=== PATIENT | female | born 1965 | race Caucasian/White ===

== ENCOUNTER 2016-08-20 13:39 | Emergency (ER) | payer OTHER ==
--- NOTE | 2016-08-20 14:02 | ED Physician Documentation ---
History of Present Illness - Stated complaint Stated Complaint: R SIDE PX - Chief complaint Chief Complaint: Abd Pain - History obtained from History obtained from: Patient, Family - History of Present Illness Timing: How many hours ago (4) Pain level max: 8 Pain level now: 5 Quality: aching, dull pain Improved by: took motrin 400mg 2 hrs ago and helped Worsened by: nothing - Additonal information Additional information: Patient with R flank pain x 4 hrs. Has had kidney stones in the past x2. Last was approx 3 years ago. Feels similar per pt. No nausea, no vomiting, no fever, no abd pain. no trauma. Review of Systems Ten Systems: 10 systems reviewed and negative Constitutional: denies: Fever, Chills Nose: denies: Rhinorrhea / runny nose, Congestion Throat: denies: Sore throat Cardiac: denies: Chest pain / pressure Respiratory: denies: Cough GI: denies: Nausea, Vomiting, Constipation, Diarrhea, Hematemesis, Bloody / black stool : denies: Dysuria, Frequency, Hesitancy Skin: denies: Rash Musculoskeletal: denies: Neck pain Neurologic: denies: Focal weakness, Numbness, Headache PD PAST MEDICAL HISTORY - Past Medical History Past Medical History: Yes : Kidney stones Psych: Depression - Past Surgical History Past Surgical History: No - Present Medications Home Medications: Ambulatory Orders Medication Instructions Recorded Confirmed Citalopram [CeleXA] 40 mg PO DAILY 07/29/12 08/20/16 Cyclobenzaprine [Flexeril] 10 mg TID 07/29/12 08/20/16 Oxycodone HCl/Acetaminophen 1 - 2 each PO Q6H PRN #20 tablet 08/20/16 [Percocet 5-325 mg Tablet] Purple Antidepressant 08/20/16 - Allergies Allergies/Adverse Reactions: Allergies Allergy/AdvReac Type Severity Reaction Status Date / Time No Known Drug Allergies Allergy Verified 07/29/12 18:57 - Social History Does the pt smoke?: No Smoking Status: Never smoker Does the pt drink ETOH?: No PD ED PE NORMAL - Vitals Vital signs reviewed: Yes - General General: Alert and oriented X 3, No acute distress - HEENT HEENT: Moist mucous membranes - Neck Neck: Supple, no meningeal sign - Cardiac Cardiac: RRR - Respiratory Respiratory: No respiratory distress, Clear bilaterally - Abdomen Abdomen: Soft, Non tender, Non distended - Back Back: No CVA TTP, No spinal TTP - Derm Derm: Warm and dry, No rash - Neuro Neuro: Alert and oriented X 3 - Psych Psych: Normal mood, Normal affect Results - Vitals Vitals: Vital Signs - 24 hr 08/20/16 08/20/16 13:47 15:30 Temperature 36.5 C Heart Rate 75 66 Respiratory 18 18 Rate Blood Pressure 169/88 H 141/61 H O2 Saturation 94 96 Oxygen O2 Source Room air - Labs Labs: Laboratory Tests 08/20/16 08/20/16 08/20/16 13:55 14:03 14:03 WBC 8.8 RBC 4.89 Hgb 13.2 Hct 39.7 MCV 81.2 MCH 27.1 MCHC 33.3 RDW 13.4 Plt Count 318 MPV 8.0 Neut # 5.5 Lymph # 2.2 Lyman # 0.8 Eos # 0.2 Baso # 0.1 Absolute Nucleated RBC 0.00 Nucleated RBCs 0.0 Sodium 141 Potassium 3.9 Chloride 109 Carbon Dioxide 25 Anion Gap 7.0 BUN 12 Creatinine 0.9 Estimated GFR (MDRD) 66 L Glucose 112 H Calcium 9.6 Total Bilirubin 0.6 AST 28 ALT 27 Alkaline Phosphatase 68 Total Protein 7.8 Albumin 4.2 Globulin 3.6 Albumin/Globulin Ratio 1.2 Lipase 34 Urine Color YELLOW Urine Clarity CLEAR Urine pH 5.5 Ur Specific [place] >=1.030 H Urine Protein TRACE Urine Glucose (UA) NEGATIVE Urine Ketones NEGATIVE Urine Occult Blood LARGE H Urine Nitrite NEGATIVE Urine Bilirubin NEGATIVE Urine Urobilinogen 0.2 (NORMAL) Ur Leukocyte Esterase NEGATIVE Urine RBC TNTC H Urine WBC 0-3 Ur Squamous Epith Cells MOD Squamous H Urine Bacteria None Seen Ur Microscopic Review INDICATED Urine Culture Comments NOT INDICATED - Rads (name of study) Ct abd/pelvis Radiology: Prelim report reviewed, EMP read contemporaneously, See rad report ( Severe right hydronephrosis secondary to a 9 mm distal ureteral stone. Nonobstructing punctate right and 9 mm left renal calculi. ) PD MEDICAL DECISION MAKING - ED course Complexity details: reviewed results, re-evaluated patient, considered differential, d/w patient ED course: Patient with a 9 mm right ureteral stone near the UVJ. She has hydronephrosis on that side. I offered to call a urologist for her, but they want to contact their insurance company to see who is in network for them. Recommend that she call the urologist as soon as possible to schedule an appointment as this may require retrieval of the stone. We also do not want to have her have an infected ureteral stone. She is well-appearing, nontoxic. Afebrile. Pain well controlled here. Tolerating p.o. without difficulty. She will return immediately if she worsens. Patient and family counseled regarding signs and symptoms for which I believe and urgent re-evaluation would be necessary. Patient with good understanding of and agreement to plan and is comfortable going home at this time This document was made in part using voice recognition software. While efforts are made to proofread this document, sound alike and grammatical errors may occur. Departure - Departure Disposition: 01 Home, Self Care Clinical Impression: Ureteral stone Condition: Good Instructions: ED Stone Renal W Colic Follow-Up: Isidro Harding DO [Primary Care Provider] - Within 1 week [facility] [Provider Group] Prescriptions: Oxycodone HCl/Acetaminophen [Percocet 5-325 mg Tablet] 1 - 2 each PO Q6H PRN # 20 tablet PRN Reason: pain Comments: Return if you worsen. Drink plenty of fluids. You need to see a urologist as this stone may not pass on its own. Your ureteral stone is approximately 9 mm. [facility] [address] [place] [address], [address] [place] [address] [address] alcohol or [address] while on narcotic pain medicine. Note that many narcotic pain relievers also contain tylenol/acetaminophen. Please ensure that your total dose of acetaminophen from all sources does not exceed 3 grams (3000mg) per day. You may constipated on this medication, take a stool softener such as "Colace" twice a day while you are on it. Also recommend a [id number] laxative such as senna or MiraLAX any day that you do not have a bowel movement. If you received narcotic pain medication in the emergency department, do not drive or operate machinery for the next 24 hours. Your blood pressure was elevated today on check in to the emergency department. This does not mean that you have hypertension, it is a common phenomenon to check into the emergency department and have elevated blood pressure. I recommend that you see your primary care physician within the week to have it rechecked when you're feeling better. Discharge Date/Time: 08/20/16 15:38
[2016-08-20 14:04] LABS: BILIRUBIN,URINE NEGATIVE (NEGATIVE); PH,URINE 5.5 PH (5.0-7.5)
[2016-08-20 14:10] LABS: BASOPHILS # (AUTO) 0.1 10^3/uL (0.0-0.1); BASOPHILS % (AUTO) 0.7 %; EOSINOPHILS # (AUTO) 0.2 10^3/uL (0.0-0.7); EOSINOPHILS % (AUTO) 2.6 %; HCT - HEMATOCRIT 39.7 % (37.0-47.0); HGB - HEMOGLOBIN 13.2 g/dL (12.0-16.0); LYMPHOCYTES # (AUTO) 2.2 10^3/uL (1.5-3.5); LYMPHOCYTES % (AUTO) 25.1 %; MEAN CORPUSCULAR HEMOGLOBIN 27.1 pg (27.0-31.0); MEAN CORPUSCULAR HGB CONC 33.3 g/dL (32.0-36.0); MEAN CORPUSCULAR VOLUME 81.2 fL (81.0-99.0); MONOCYTES # (AUTO) 0.8 10^3/uL (0.0-1.0); MONOCYTES % (AUTO) 8.7 %; NEUTROPHILS # (AUTO) 5.5 10^3/uL (1.5-6.6); NEUTROPHILS % (AUTO) 62.9 %; RED BLOOD COUNT 4.89 10^6/uL (4.20-5.40); RED CELL DISTRIBUTION WIDTH 13.4 % (12.0-15.0); UNCORRECTED WHITE BLOOD COUNT 8.8 x10^3/uL; WHITE BLOOD COUNT 8.8 x10^3/uL (4.8-10.8)
[2016-08-20 14:12] LABS: UA w/ MICROSCOPIC CHARGE YES
[2016-08-20 14:19] LABS: WBC,URINE 0-3 /HPF (0-5)
[2016-08-20 14:20] LABS: UR CULTURE IF IND NOT INDICATED
[2016-08-20 14:23] LABS: ALBUMIN/GLOBULIN RATIO 1.2 (1.0-2.2); BILIRUBIN,TOTAL 0.6 mg/dL (0.2-1.0); CALCIUM 9.6 mg/dL (8.5-10.3); CREATININE 0.9 mg/dL (0.4-1.0); POTASSIUM 3.9 mmol/L (3.5-5.0); TOTAL PROTEIN 7.8 g/dL (6.7-8.2)
[2016-08-20] MEDS ORDERED: HYDROmorphone 1 MG/ML SYRINGE IVP STA (14:51)
[2016-08-20] MEDS ORDERED: ONDANSETRON 4 MG/2 ML VIAL IVP STA (14:51)
[2016-08-20] MEDS ORDERED: KETOROLAC 60 MG/2 ML VIAL IVP STA (14:51)
[2016-08-20] MEDS ORDERED: KETOROLAC 30 MG/ML VIAL ONE (14:53)
[2016-08-20] MEDS ORDERED: HYDROmorphone 1 MG/ML SYRINGE ONE (14:53)
[2016-08-20] MEDS ORDERED: ONDANSETRON 4 MG/2 ML VIAL ONE (14:53)
--- NOTE | 2016-08-20 14:59 | CT Preliminary Report ---
Exam: CT Abdomen/Pelvis W/O IMPRESSION: 1. Severe right hydronephrosis secondary to a 9 mm distal ureteral stone. 2. Nonobstructing punctate right and 9 mm left renal calculi. [facility] SITE ID: [id number]
--- NOTE | 2016-08-20 15:02 | CT Report ---
EXAM: CT ABDOMEN AND PELVIS (CT KUB) EXAM DATE: 08/20/2016 02:33 PM. CLINICAL HISTORY: R flank pain, poss renal stone. COMPARISONS: 04/21/2008. TECHNIQUE: Routine axial helical CT imaging was performed through the abdomen and pelvis without IV c ontrast. Reconstructions: Coronal and sagittal. In accordance with CT protocol optimization, one or more of the following dose reduction techniques w ere utilized for this exam: automated exposure control, adjustment of mA and/or KV based on patient s ize, or use of iterative reconstructive technique. FINDINGS: Lung Bases: Unremarkable. Right Kidney/Ureter: There is severe hydroureteronephrosis secondary to a 9 mm stone in the distal ur eter approximately 2 cm proximal to the ureterovesical junction. Punctate nonobstructing stone is pre sent in the lower pole. Left Kidney/Ureter: No hydronephrosis. A 9 mm nonobstructing stone is present in the upper pole. Other Solid Organs: Noncontrast images of the solid organs are grossly unremarkable. Gallbladder/Bile Ducts: Unremarkable. Peritoneal Cavity: Bowel has normal caliber. There is diverticulosis of the descending and sigmoid co boaz without evidence of diverticulitis. No ascites or pneumoperitoneum. Pelvic Organs: Urinary bladder is decompressed. An intrauterine contraceptive device is present. Vasculature: Unremarkable. Other: None. IMPRESSION: 1. Severe right hydronephrosis secondary to a 9 mm distal ureteral stone. 2. Nonobstructing punctate right and 9 mm left renal calculi. [facility] Referring Provider Line: [phone] SITE ID: [id number]
[2016-08-20 15:31] VITALS: BP 141/61
== END 2016-08-20 15:38 | disposition home or self-care (01) ==
LOC: ED 13:39
DX: N13.2 Hydronephrosis with renal and ureteral calculous obstruction (principal); R03.0 Elevated blood-pressure reading, without diagnosis of hypertension
CPT/HCPCS: 36415; 74176; 80053; 81001; 81003; 83690; 85025; 87086; 96374; 96375; 99283; 99284

== ENCOUNTER 2016-08-26 13:12 | Outpatient (CLI) | payer OTHER | END 2016-08-26 13:13 | disposition critical access hospital (66) | LOC: EMS 13:12 | PROVIDERS: ATTEND Surgery | DX: R53.1 Weakness (principal); R55 Syncope and collapse | CPT/HCPCS: A0425; A0429 ==

== ENCOUNTER 2016-08-26 13:37 | Emergency (ER) | payer OTHER ==
[2016-08-26] MEDS ORDERED: SODIUM CHLORIDE 0.9% 1,000 ML IV ONE (13:50)
--- NOTE | 2016-08-26 13:54 | ED Physician Documentation ---
PD HPI ALTERED MENTAL STATUS - Stated complaint Stated Complaint: SYNCOPE - Chief complaint Chief Complaint: Neuro - History obtained from History obtained from: Family, EMS - History of Present Illness Timing - onset: Other (51-year-old woman with recent diagnosis of a large kidney stone taking occasional Percocet became acutely altered at lunch today. Most of the history is from the as she is unable to give a significant history because of her altered mental status. It sounds like she took one Percocet today, but that is not out of the ordinary. At lunch she started to complain of dizziness and feeling hot and then became clammy and lay down on the bench and is now basically nonverbal. Brought in by ambulance for altered mental status, blood sugar and route was in the 140s. denies significant concern for drug or alcohol abuse.) Review of Systems Unable to obtain: Confused PD PAST MEDICAL HISTORY - Past Medical History : Kidney stones Psych: Depression - Past Surgical History Past Surgical History: No - Present Medications Home Medications: Ambulatory Orders Medication Instructions Recorded Confirmed Citalopram [CeleXA] 40 mg PO DAILY 07/29/12 08/20/16 Cyclobenzaprine [Flexeril] 10 mg TID 07/29/12 08/20/16 Oxycodone HCl/Acetaminophen 1 - 2 each PO Q6H PRN #20 tablet 08/20/16 [Percocet 5-325 mg Tablet] Purple Antidepressant 08/20/16 - Allergies Allergies/Adverse Reactions: Allergies Allergy/AdvReac Type Severity Reaction Status Date / Time No Known Drug Allergies Allergy Verified 07/29/12 18:57 - Social History Does the pt smoke?: No Smoking Status: Never smoker Does the pt drink ETOH?: No PD ED PE NORMAL - Vitals Vital signs reviewed: Yes - General General: Other (Eyes closed, moaning, answers simple questions, alert and oriented 2, not the date. GCS 13) - HEENT HEENT: PERRL, Moist mucous membranes, Pharynx benign - Neck Neck: Supple, no meningeal sign, No bony TTP - Cardiac Cardiac: RRR, No murmur - Respiratory Respiratory: No respiratory distress, Clear bilaterally - Abdomen Abdomen: Soft, Non tender - Back Back: No CVA TTP, No spinal TTP - Derm Derm: Normal color, Warm and dry - Extremities Extremities: No edema, No calf tenderness / cord - Neuro Neuro: Other (Seems very weak peripherally, unable to lift either arm or leg off the bed for more than a couple of seconds, however her strength is symmetric and command following is symmetric. GCS is 13, -1 for eyes, -1 for verbal.) Results - Vitals Vitals: Vital Signs - 24 hr 08/26/16 13:40 Temperature 36.6 C Heart Rate 73 Respiratory 14 Rate Blood Pressure 133/70 H O2 Saturation 94 Oxygen O2 Source Room air - EKG (time done) 1346 Rate: Rate (enter#) (72) Rhythm: NSR [place]: Normal Intervals: Normal ME QRS: Normal Ischemia: Normal ST segments Computer interpretation: Agree with computer - Labs Labs: Laboratory Tests 08/26/16 08/26/16 08/26/16 13:46 13:46 14:05 WBC 10.0 RBC 4.89 Hgb 13.2 Hct 39.6 MCV 80.9 L MCH 27.0 MCHC 33.3 RDW 13.2 Plt Count 305 MPV 8.5 Neut # 7.3 H Lymph # 2.0 Mckenzie # 0.4 Eos # 0.2 Baso # 0.1 Absolute Nucleated RBC 0.00 Nucleated RBCs 0.0 Sodium 139 Potassium 3.7 Chloride 105 Carbon Dioxide 23 Anion Gap 11.0 BUN 12 Creatinine 0.9 Estimated GFR (MDRD) 66 L Glucose 142 H Calcium 9.4 Magnesium 1.9 Total Bilirubin 0.7 AST 33 ALT 24 Alkaline Phosphatase 64 Total Protein 7.9 Albumin 4.0 Globulin 3.9 Albumin/Globulin Ratio 1.0 Lipase 23 Urine Color Urine Clarity Urine pH Ur Specific [place] Urine Protein Urine Glucose (UA) Urine Ketones Urine Occult Blood Urine Nitrite Urine Bilirubin Urine Urobilinogen Ur Leukocyte Esterase Ur Microscopic Review Urine Culture Comments Urine HCG, Qual Salicylates < 6.0 Urine Opiates Screen NEGATIVE Ur Oxycodone Screen POSITIVE H Urine Methadone Screen NEGATIVE Ur Propoxyphene Screen NEGATIVE Acetaminophen < 10 L Ur Barbiturates Screen NEGATIVE Ur Tricyclics Screen NEGATIVE Ur Phencyclidine Scrn NEGATIVE Ur Amphetamine Screen NEGATIVE U Methamphetamines Scrn NEGATIVE U Benzodiazepines Scrn NEGATIVE Urine Cocaine Screen NEGATIVE U Cannabinoids Screen NEGATIVE Ethyl Alcohol < 5.0 08/26/16 14:05 WBC RBC Hgb Hct MCV MCH MCHC RDW Plt Count MPV Neut # Lymph # M[place]enzie # Eos # Baso # Absolute Nucleated RBC Nucleated RBCs Sodium Potassium Chloride Carbon Dioxide Anion Gap BUN Creatinine Estimated GFR (MDRD) Glucose Calcium Magnesium Total Bilirubin AST ALT Alkaline Phosphatase Total Protein Albumin Globulin Albumin/Globulin Ratio Lipase Urine Color YELLOW Urine Clarity CLEAR Urine pH 6.0 Ur Specific [place] 1.025 Urine Protein TRACE Urine Glucose (UA) NEGATIVE Urine Ketones NEGATIVE Urine Occult Blood SMALL H Urine Nitrite NEGATIVE Urine Bilirubin NEGATIVE Urine Urobilinogen 0.2 (NORMAL) Ur Leukocyte Esterase NEGATIVE Ur Microscopic Review INDICATED Urine Culture Comments Not Reportable Urine HCG, Qual NEGATIVE Salicylates Urine Opiates Screen Ur Oxycodone Screen Urine Methadone Screen Ur Propoxyphene Screen Acetaminophen Ur Barbiturates Screen Ur Tricyclics Screen Ur Phencyclidine Scrn Ur Amphetamine Screen U Methamphetamines Scrn U Benzodiazepines Scrn Urine Cocaine Screen U Cannabinoids Screen Ethyl Alcohol PD MEDICAL DECISION MAKING - ED course ED course: 51-year-old woman brought in by ambulance for acutely altered mental status, no clear drug or alcohol exposure. It was very sudden onset so infectious etiology is considered less likely. Unfortunately the CT scanner is down, I had a discussion with the , we offered either a stat transfer to [place] for CT versus waiting a few hours for MRI here and he opted for the latter, he does understand there is some risk to waiting for MRI. However during the waiting for MRI her mental status completely returned to normal, therefore this pretty much rules out most entities that would be identified by cranial imaging. Departure - Departure Disposition: 01 Home, Self Care Clinical Impression: Confusion Altered mental status Qualifiers: Altered mental status type: coma Coma depth: Raquel coma 13-15 Coma timing: in the field (EMT or ambulance) Qualified Code(s): R40.2411 - [place] coma scale score 13-15, in the field [EMT or ambulance] Condition: Good Record reviewed to determine appropriate education?: Yes Instructions: ED Altered Loc Comments: Call your doctor to arrange a follow-up appointment, make the next available appointment. In the interim, return anytime if worse or if new symptoms develop. Your blood pressure was elevated today on check into the emergency department. This does not mean that you have hypertension, it is a common phenomenon to come to the emergency department and have elevated blood pressure. I recommend that she see her primary care physician within the week to have it rechecked when you are feeling better.
[2016-08-26 13:59] LABS: BASOPHILS # (AUTO) 0.1 10^3/uL (0.0-0.1); BASOPHILS % (AUTO) 0.6 %; EOSINOPHILS # (AUTO) 0.2 10^3/uL (0.0-0.7); EOSINOPHILS % (AUTO) 1.7 %; HCT - HEMATOCRIT 39.6 % (37.0-47.0); HGB - HEMOGLOBIN 13.2 g/dL (12.0-16.0); LYMPHOCYTES % (AUTO) 20.2 %; MEAN CORPUSCULAR HGB CONC 33.3 g/dL (32.0-36.0); MEAN CORPUSCULAR VOLUME 80.9 fL (81.0-99.0); MEAN PLATELET VOLUME 8.5 fL (7.9-10.8); MONOCYTES # (AUTO) 0.4 10^3/uL (0.0-1.0); MONOCYTES % (AUTO) 4.4 %; NEUTROPHILS # (AUTO) 7.3 10^3/uL (1.5-6.6); NEUTROPHILS % (AUTO) 73.1 %; RED BLOOD COUNT 4.89 10^6/uL (4.20-5.40); RED CELL DISTRIBUTION WIDTH 13.2 % (12.0-15.0)
[2016-08-26 14:10] LABS: BILIRUBIN,TOTAL 0.7 mg/dL (0.2-1.0); BUN - BLOOD UREA NITROGEN 12 mg/dL (6-20); CALCIUM 9.4 mg/dL (8.5-10.3); CARBON DIOXIDE - CO2 23 mmol/L (21-32); CHLORIDE 105 mmol/L (101-111); CREATININE 0.9 mg/dL (0.4-1.0); GFR - MDRD 66 (>89); GLUCOSE 142 mg/dL (70-100); LIPASE 23 U/L (22-51); MAGNESIUM 1.9 mg/dL (1.7-2.8); POTASSIUM 3.7 mmol/L (3.5-5.0); SALICYLATE < 6.0 mg/dL; SODIUM 139 mmol/L (135-145); TOTAL PROTEIN 7.9 g/dL (6.7-8.2)
[2016-08-26 14:16] LABS: ACETAMINOPHEN < 10 ug/mL (10-30)
[2016-08-26 14:36] LABS: BILIRUBIN,URINE NEGATIVE (NEGATIVE)
[2016-08-26 14:39] LABS: UA w/ MICROSCOPIC CHARGE YES
[2016-08-26 14:40] LABS: HCG UR QUAL NEGATIVE
[2016-08-26] MEDS ORDERED: LORazepam 2 MG/ML SYRINGE ONE (14:42)
[2016-08-26] MEDS ORDERED: WATER FOR INJECTION,STERILE 10 ML ONE (14:43)
[2016-08-26] MEDS ORDERED: OLANZapine 10 MG VIAL IM ONE (14:43)
[2016-08-26 15:01] LABS: UR CULTURE IF IND NOT INDICATED; WBC,URINE 0-3 /HPF (0-5)
[2016-08-26 15:15] VITALS: BP 128/86
== END 2016-08-26 15:16 | disposition home or self-care (01) ==
LOC: EDUNIT# → ED 13:37
DX: R41.0 Disorientation, unspecified (principal); R40.2411 Glasgow coma scale score 13-15, in the field [EMT or ambulance]
CPT/HCPCS: 36415; 80053; 80306; 80307; 80320; 80329; 81001; 81025; 83690; 83735; 85025; 93005; 99284; J2060; 81003; 87086

== ENCOUNTER 2017-01-22 09:49 | Outpatient (CLI) | payer OTHER | END 2017-01-22 09:50 | disposition home or self-care (01) | LOC: SC 09:49 | PROVIDERS: ATTEND Internal Medicine Pulmonary Disease | DX: G47.30 Sleep apnea, unspecified (principal); G47.10 Hypersomnia, unspecified; R06.83 Snoring; G47.8 Other sleep disorders; G47.00 Insomnia, unspecified | CPT/HCPCS: 99203; 99212 ==

== ENCOUNTER 2017-02-27 09:00 | Outpatient (CLI) | payer OTHER | END 2017-02-27 09:01 | disposition home or self-care (01) | LOC: SC 09:00 | PROVIDERS: ATTEND Nurse Practitioner Family | DX: G47.33 Obstructive sleep apnea (adult) (pediatric) (principal); R00.0 Tachycardia, unspecified | CPT/HCPCS: 99212; 99214 ==

== ENCOUNTER 2017-11-12 08:00 | Outpatient (CLI) | payer OTHER ==
[2017-11-12 13:06] LABS: BASOPHILS % (AUTO) 0.6 %; EOSINOPHILS # (AUTO) 0.2 10^3/uL (0.0-0.7); EOSINOPHILS % (AUTO) 2.7 %; HGB - HEMOGLOBIN 13.7 g/dL (12.0-16.0); LYMPHOCYTES # (AUTO) 1.9 10^3/uL (1.5-3.5); MEAN CORPUSCULAR HEMOGLOBIN 28.2 pg (27.0-31.0); MEAN CORPUSCULAR HGB CONC 33.9 g/dL (32.0-36.0); MEAN CORPUSCULAR VOLUME 83.2 fL (81.0-99.0); MEAN PLATELET VOLUME 9.3 fL (7.9-10.8); MONOCYTES # (AUTO) 0.6 10^3/uL (0.0-1.0); MONOCYTES % (AUTO) 8.4 %; NEUTROPHILS # (AUTO) 4.5 10^3/uL (1.5-6.6); NEUTROPHILS % (AUTO) 62.3 %; PLT - PLATELET COUNT 291 10^3/uL (130-450); RED BLOOD COUNT 4.84 10^6/uL (4.20-5.40); RED CELL DISTRIBUTION WIDTH 13.4 % (12.0-15.0); WHITE BLOOD COUNT 7.2 x10^3/uL (4.8-10.8)
[2017-11-12 13:34] LABS: ALBUMIN/GLOBULIN RATIO 1.2 (1.0-2.2); ALKALINE PHOSPHATASE 57 IU/L (42-121); ALT ALANINE AMINOTRANSFERASE 24 IU/L (10-60); AST ASPARTATE AMINOTRANSFERASE 29 IU/L (10-42); BILIRUBIN,TOTAL 0.3 mg/dL (0.2-1.0); BUN - BLOOD UREA NITROGEN 12 mg/dL (6-20); CALCIUM 9.1 mg/dL (8.5-10.3); CARBON DIOXIDE - CO2 24 mmol/L (21-32); CHLORIDE 107 mmol/L (101-111); CHOL/HDL RATIO 3.7 (<4.4); CHOLESTEROL 192 mg/dL; CREATININE 0.7 mg/dL (0.4-1.0); GFR - MDRD 88 (>89); GLUCOSE 100 mg/dL (70-100); HB2 TOTAL 14.5 g/dL; HDL CHOLESTEROL 52 mg/dL; HEMOGLOBIN A1C 0.5 g/dL; HEMOGLOBIN A1C % 5.3 % (4.6-6.2); LDL CHOLESTEROL,CALCULATED 118 mg/dL; LDL/HDL RATIO 2.3 (<4.4); SODIUM 138 mmol/L (135-145); TOTAL PROTEIN 7.4 g/dL (6.7-8.2); VLDL CHOLESTEROL 22 mg/dL
== END 2017-11-12 08:01 | disposition home or self-care (01) ==
LOC: LAB.WCP 08:00
PROVIDERS: ATTEND Family Medicine
DX: Z00.00 Encounter for general adult medical examination without abnormal findings (principal)
CPT/HCPCS: 36415; 80053; 80061; 83036; 83721; 84443; 85025

== ENCOUNTER 2018-06-14 16:11 | Emergency (ER) | payer OTHER ==
--- NOTE | 2018-06-14 16:36 | ED Physician Documentation ---
PD HPI ABD PAIN - Stated complaint Stated Complaint: BACK PX - Chief complaint Chief Complaint: Abd Pain - History obtained from History obtained from: Patient - History of Present Illness Timing - onset: How many weeks ago (1) Timing - duration: Weeks (1) Timing - details: Abrupt onset (She noted some hematuria about a week ago and some occasional pains in the left flank. She had a fairly consistent pain develop in the left flank yesterday and worse today and feeling more consistent with prior kidney stone she had had. He has had normal bowel movements. She denies any abdominal tenderness. The pain is consistent without any exacerbation by movement or position.) Quality: Aching, Pain Location: LLQ Radiation: Left flank (Mostly in the left flank with only a little bit in the lower abdomen) Improved by: No: Eating, Laying still, Position Worsened by: No: Eating, Moving, Breathing, Palpation Associated symptoms: Nausea, Hematuria. No: Fever, Vomiting, Diarrhea, Dysuria Similar symptoms before: Diagnosis (Pending character are similar to a large kidney stone she had years ago that required cystoscopic removal by urology and [facility]. She states she did try to call the urology office earlier today and was given an appointment for July.) Recently seen: Not recently seen Review of Systems Constitutional: denies: Fever, Chills, Myalgias Nose: denies: Rhinorrhea / runny nose, Congestion Throat: denies: Sore throat Cardiac: denies: Chest pain / pressure Respiratory: denies: Cough GI: reports: Abdominal Pain (left lower abd and mostly left flank), Nausea. denies: Vomiting, Diarrhea : reports: Hematuria. denies: Dysuria Skin: denies: Rash, Lesions Neurologic: denies: Generalized weakness, Near syncope PD PAST MEDICAL HISTORY - Past Medical History Cardiovascular: None : Kidney stones Psych: Depression - Past Surgical History Past Surgical History: No - Present Medications Home Medications: Ambulatory Orders Medication Instructions Recorded Confirmed Citalopram [CeleXA] 40 mg PO DAILY 07/29/12 08/20/16 Cyclobenzaprine [Flexeril] 10 mg TID 07/29/12 08/20/16 Oxycodone HCl/Acetaminophen 1 - 2 each PO Q6H PRN #20 tablet 08/20/16 [Percocet 5-325 mg Tablet] Purple Antidepressant 08/20/16 Dexamethasone [Decadron] 4 mg PO DAILY #5 tablet 06/14/18 Ondansetron Odt [Zofran] 4 mg TL Q6H PRN #15 tablet 06/14/18 Oxycodone HCl/Acetaminophen 1 - 2 each PO Q6H PRN #25 tablet 06/14/18 [Percocet 5-325 mg Tablet] Tamsulosin [Flomax] 0.4 mg PO DAILY #10 capsule 06/14/18 Tramadol HCl 50 mg PO Q6H PRN #20 tablet 06/14/18 - Allergies Allergies/Adverse Reactions: Allergies Allergy/AdvReac Type Severity Reaction Status Date / Time No Known Drug Allergies Allergy Verified 06/14/18 16:23 - Social History Does the pt smoke?: No Smoking Status: Never smoker Does the pt drink ETOH?: No PD ED PE NORMAL - Vitals Vital signs reviewed: Yes - General General: Alert and oriented X 3, Well developed/nourished, Other (appears in pain and is pacing in room) - Neck Neck: Supple, no meningeal sign, No adenopathy - Cardiac Cardiac: RRR, No murmur - Respiratory Respiratory: Clear bilaterally - Abdomen Abdomen: Normal bowel sounds, Soft, Non distended, No organomegaly, Other (minimal tender LLQ without guarding. ) - Female Female : Deferred - Rectal Rectal: Deferred - Back Back: Other (moderate left CVA tenderness to percussion. ) - Derm Derm: Normal color, Warm and dry, No rash - Neuro Neuro: Alert and oriented X 3, No motor deficit, Normal speech Results - Vitals Vitals: Vital Signs - 24 hr 06/14/18 06/14/18 06/14/18 16:15 16:23 18:38 Temperature 36.5 C 36.5 C 36.6 C Heart Rate 88 88 81 Respiratory 16 16 16 Rate Blood Pressure 153/83 H 153/83 H 170/75 H O2 Saturation 97 97 92 06/14/18 19:27 Temperature 36.4 C L Heart Rate 78 Respiratory 14 Rate Blood Pressure 150/82 H O2 Saturation 93 Oxygen O2 Source Room air - Labs Labs: Laboratory Tests 06/14/18 16:55 Urine Color BROWN Urine Clarity HAZY Urine pH 5.0 Ur Specific [place] >=1.030 H Urine Protein 30 H Urine Glucose (UA) NEGATIVE Urine Ketones NEGATIVE Urine Occult Blood LARGE H Urine Nitrite NEGATIVE Urine Bilirubin NEGATIVE Urine Urobilinogen 0.2 (NORMAL) Ur Leukocyte Esterase TRACE H Urine RBC TNTC H Urine WBC 0-3 Ur Squamous Epith Cells RARE Squamous Urine Bacteria None Seen Urine Yeast PRESENT Ur Microscopic Review INDICATED Urine Culture Comments INDICATED - Rads (name of study) KUB CT Radiology: Prelim report reviewed (proximal ureteral stone with mild hydro. stone is 8 mm size. ), See rad report PD MEDICAL DECISION MAKING - ED course Complexity details: considered differential (Talked with Dr. Ed melo who is on-call for urology at [facility]. The patient stated she had previously seen [facility] urology years ago with her prior stone. coverage such he will see the patient Sunday and if she is n.p.o. after midnight, he will arrange to have her come over for cystoscopy and presumably stent and possible stone removal or treatment.), d/w patient Departure - Departure Disposition: Home, Self Care Clinical Impression: Left ureteral stone Condition: Stable Record reviewed to determine appropriate education?: Yes Instructions: ED Stone Renal W Colic Follow-Up: Toni Garland MD [Physician No Access] - Prescriptions: Dexamethasone [Decadron] 4 mg PO DAILY #5 tablet Ondansetron Odt [Zofran] 4 mg TL Q6H PRN #15 tablet PRN Reason: Nausea / Vomiting Oxycodone HCl/Acetaminophen [Percocet 5-325 mg Tablet] 1 - 2 each PO Q6H PRN #25 tablet PRN Reason: pain Tamsulosin [Flomax] 0.4 mg PO DAILY #10 capsule Tramadol HCl 50 mg PO Q6H PRN #20 tablet PRN Reason: Pain Comments: Stay well-hydrated. Use Tylenol or ibuprofen if needed for mild pains. Add tramadol for medium pain. Add oxycodone for worse pain. Ondansetron if needed for nausea. TMs are loose and daily to try to reduce ureteral spasm and. Decadron daily for inflammation of the ureter. Nothing to eat or drink after midnight on Sunday except sips of water with your medication. Call Which is office at [phone] Sunday morning and he will fit you into the surgical schedule during the day on Sunday to take care of the stone. Discharge Date/Time: 06/14/18 19:29
[2018-06-14 17:02] LABS: BILIRUBIN,URINE NEGATIVE (NEGATIVE); GLUCOSE, URINE (UA) NEGATIVE (NEGATIVE); KETONES,URINE (UA) NEGATIVE (NEGATIVE); LEUKOCYTE ESTERASE, URINE TRACE (NEGATIVE); NITRITE,URINE NEGATIVE (NEGATIVE); OCCULT BLOOD,URINE LARGE (NEGATIVE); PROTEIN,URINE 30 mg/dL (NEGATIVE); UROBILINOGEN,URINE 0.2 (NORMAL) E.U./dL (NORMAL)
[2018-06-14] MEDS ORDERED: LIDOCAINE-MPF 2% 7 ML in SODIUM CHLORIDE 0.9% 50 ML IV STA (17:02)
[2018-06-14] MEDS ORDERED: KETOROLAC 30 MG/ML VIAL IVP STA (17:02)
[2018-06-14] MEDS ORDERED: ONDANSETRON 4 MG/2 ML VIAL IVP STA (17:03)
[2018-06-14] MEDS ORDERED: SODIUM CHLORIDE 0.9% 1,000 ML IV ONE (17:04)
[2018-06-14 17:05] LABS: CLARITY,URINE HAZY (CLEAR)
[2018-06-14 17:15] LABS: BACTERIA,URINE None Seen /HPF (None Seen); RBC,URINE TNTC /HPF (0-5); SQUAMOUS EPITHELIAL CELL,UR RARE Squamous (<= Few); YEAST,URINE PRESENT
--- NOTE | 2018-06-14 18:07 | CT Report ---
Reason: left flank pain, h/o stones Procedure Date: 06/14/2018 Accession Number: [id number] / [id number] Procedure: CT - Abdomen/Pelvis WO CPT Code: FULL RESULT: EXAM: CT ABDOMEN AND PELVIS (CT KUB) EXAM DATE: 06/14/2018 05:46 PM. CLINICAL HISTORY: Left flank pain, h/o stones. COMPARISONS: ABDOMEN/PELVIS W/O 08/20/2016 2:24 PM. TECHNIQUE: Routine axial helical CT imaging was performed through the abdomen and pelvis without IV contrast. Reconstructions: Coronal and sagittal. In accordance with CT protocol optimization, one or more of the following dose reduction techniques were utilized for this exam: automated exposure control, adjustment of mA and/or KV based on patient size, or use of iterative reconstructive technique. FINDINGS: Lung Bases: Unremarkable. Right Kidney/Ureter: A 3 mm nonobstructive calculus is seen in the mid polar region of right kidney (image 35 and series 3)., hydronephrosis, or hydroureter. No perinephric fat stranding. Left Kidney/Ureter: A 7 mm obstructive calculus is seen in the proximal ureter with upstream hydronephrosis. Minimal perinephric fat stranding suggestive of acute obstructive uropathy. Other Solid Organs: Noncontrast images of the solid organs are grossly unremarkable. Gallbladder/Bile Ducts: Unremarkable. Peritoneal Cavity: No free fluid, free air or jesús adenopathy. Bowel is grossly unremarkable. There is diffuse colonic diverticulosis however no diverticulitis. Normal appendix is seen in right lower quadrant. Pelvic Organs: No bladder stones or wall thickening. Noncontrast images of the visualized pelvic organs are unremarkable. Vasculature: Unremarkable. Other: Intrauterine device in situ. IMPRESSION: A 7 mm obstructive calculus in the proximal left ureter with upstream hydronephrosis. Left kidney demonstrates features suggestive of acute obstructive uropathy. A 3 mm nonobstructive calculus in mid polar region of right kidney. [facility]
[2018-06-14] MEDS ORDERED: HYDROmorphone 1 MG/ML CARPUJECT IVP STA (18:23)
[2018-06-14] MEDS ORDERED: DEXAMETHASONE 10 MG/ML VIAL IVP STA (19:03)
[2018-06-14 19:28] VITALS: BP 150/82
== END 2018-06-14 19:29 | disposition home or self-care (01) ==
LOC: ED 16:11
DX: N13.2 Hydronephrosis with renal and ureteral calculous obstruction (principal)
CPT/HCPCS: 74176; 81001; 87086; 96361; 96365; 96375; 99283; 99284; J1170; J7040; 81003

== ENCOUNTER 2018-07-15 10:45 | Outpatient (CLI) | payer OTHER ==
--- NOTE | 2018-07-16 | XRAY Report ---
Reason: SHOULDER JOINT PAIN,RIGHT Procedure Date: 07/15/2018 Accession Number: [id number] / [id number] Procedure: WCP - Shoulder 2 View RT CPT Code: FULL RESULT: EXAM: RIGHT SHOULDER RADIOGRAPHY EXAM DATE: 07/15/2018 10:58 AM. CLINICAL HISTORY: SHOULDER JOINT Pain, right. COMPARISON: None. TECHNIQUE: 2 views. FINDINGS: Bones: Normal. No fracture or bone lesion. Joints: The glenohumeral and acromioclavicular joints are normal. Soft tissues: The visualized hemithorax is unremarkable. No soft tissue swelling. IMPRESSION: Normal shoulder radiography. [facility]
== END 2018-07-15 10:46 | disposition home or self-care (01) ==
LOC: DI.WCP 10:45
PROVIDERS: ATTEND Family Medicine
DX: M25.511 Pain in right shoulder (principal)

== ENCOUNTER 2018-12-23 16:28 | Outpatient (CLI) | payer OTHER ==
--- NOTE | 2018-12-24 11:19 | Mammography Report ---
Reason: SCREENING MAMMO Procedure Date: 12/23/2018 Accession Number: [id number] / [id number] Procedure: KATHY - Screening Mammo w/[facility] CPT Code: FULL RESULT: EXAM: Screening Mammo w/[facility] DATE: 12/23/2018 5:35 PM CLINICAL HISTORY: Routine screening TECHNIQUE: (B) - Bilateral CC and MLO views were obtained. COMPARISON: 08/27/2015, 09/04/2013, 08/05/2013, 12/02/2010, 10/25/2009 PARENCHYMAL PATTERN: (VD) - The breasts demonstrate extremely dense parenchyma bilaterally, limiting the sensitivity of mammography. FINDINGS: No significant interval change. There are no suspicious masses, calcifications, or areas of distortion. Innumerable scattered bilateral calcifications again noted. IMPRESSION: Benign findings. BI-RADS category 2. RECOMMENDATION: (ANNUAL) - Recommend routine annual screening mammography. BI-RADS CATEGORY: (2) - Benign Findings. STANDARD QUALIFYING STATEMENTS: 1. This examination was not reviewed with the aid of Computer-Aided Detection (CAD). 2. A negative or benign imaging report should not preclude biopsy if clinically suspicious findings are present. 3. Dense breasts may obscure an underlying neoplasm. 4. This examination was reviewed with the aid of 3D breast imaging (tomosynthesis).
== END 2018-12-23 16:29 | disposition home or self-care (01) ==
LOC: DI 16:28
DX: Z12.31 Encounter for screening mammogram for malignant neoplasm of breast (principal)
CPT/HCPCS: 77063; 77067

== ENCOUNTER 2019-02-13 07:00 | Outpatient (CLI) | payer OTHER ==
[2019-02-13 12:16] LABS: BASOPHILS % (AUTO) 0.4 %; EOSINOPHILS # (AUTO) 0.2 10^3/uL (0.0-0.7); EOSINOPHILS % (AUTO) 2.7 %; LYMPHOCYTES # (AUTO) 2.2 10^3/uL (1.5-3.5); LYMPHOCYTES % (AUTO) 32.4 %; MEAN CORPUSCULAR HEMOGLOBIN 28.5 pg (27.0-31.0); MEAN CORPUSCULAR HGB CONC 32.7 g/dL (32.0-36.0); MEAN PLATELET VOLUME 10.9 fL (7.9-10.8); MONOCYTES # (AUTO) 0.6 10^3/uL (0.0-1.0); MONOCYTES % (AUTO) 9.1 %; NEUTROPHILS # (AUTO) 3.7 10^3/uL (1.5-6.6); NEUTROPHILS % (AUTO) 55.3 %; PLT - PLATELET COUNT 346 10^3/uL (130-450); RED BLOOD COUNT 4.92 10^6/uL (4.20-5.40); RED CELL DISTRIBUTION WIDTH 12.5 % (12.0-15.0); WHITE BLOOD COUNT 6.7 x10^3/uL (4.8-10.8)
[2019-02-13 12:49] LABS: ALBUMIN/GLOBULIN RATIO 1.1 (1.0-2.2); ALKALINE PHOSPHATASE 59 IU/L (42-121); ALT ALANINE AMINOTRANSFERASE 30 IU/L (10-60); AST ASPARTATE AMINOTRANSFERASE 33 IU/L (10-42); BILIRUBIN,TOTAL 0.7 mg/dL (0.2-1.0); BUN - BLOOD UREA NITROGEN 17 mg/dL (6-20); CALCIUM 9.4 mg/dL (8.5-10.3); CARBON DIOXIDE - CO2 28 mmol/L (21-32); CHLORIDE 101 mmol/L (101-111); CHOL/HDL RATIO 4.1 (<4.4); CHOLESTEROL 202 mg/dL; CREATININE 0.8 mg/dL (0.4-1.0); GFR - MDRD 75 (>89); GLUCOSE 99 mg/dL (70-100); HDL CHOLESTEROL 49 mg/dL; LDL CHOLESTEROL,CALCULATED 118 mg/dL; LDL/HDL RATIO 2.4 (<4.4); SODIUM 141 mmol/L (135-145); TOTAL PROTEIN 7.6 g/dL (6.7-8.2); VLDL CHOLESTEROL 35 mg/dL
== END 2019-02-13 23:59 | disposition home or self-care (01) ==
LOC: LAB.WCP 07:00
PROVIDERS: ATTEND Family Medicine
DX: F41.9 Anxiety disorder, unspecified (principal); R94.5 Abnormal results of liver function studies; R00.0 Tachycardia, unspecified
CPT/HCPCS: 36415; 80053; 80061; 83721; 84443; 85025

== ENCOUNTER 2019-11-17 09:27 | Outpatient (CLI) | payer OTHER ==
[2019-11-17 12:06] LABS: BASOPHILS % (AUTO) 0.6 %; EOSINOPHILS # (AUTO) 0.2 10^3/uL (0.0-0.7); EOSINOPHILS % (AUTO) 2.4 %; HGB - HEMOGLOBIN 14.8 g/dL (12.0-16.0); LYMPHOCYTES # (AUTO) 2.1 10^3/uL (1.5-3.5); LYMPHOCYTES % (AUTO) 32.7 %; MEAN CORPUSCULAR HGB CONC 32.2 g/dL (32.0-36.0); MEAN CORPUSCULAR VOLUME 86.9 fL (81.0-99.0); MEAN PLATELET VOLUME 10.6 fL (7.9-10.8); MONOCYTES # (AUTO) 0.6 10^3/uL (0.0-1.0); MONOCYTES % (AUTO) 8.4 %; NEUTROPHILS # (AUTO) 3.7 10^3/uL (1.5-6.6); NEUTROPHILS % (AUTO) 55.7 %; PLT - PLATELET COUNT 308 10^3/uL (130-450); RED BLOOD COUNT 5.28 10^6/uL (4.20-5.40); RED CELL DISTRIBUTION WIDTH 12.4 % (12.0-15.0); WHITE BLOOD COUNT 6.6 x10^3/uL (4.8-10.8)
[2019-11-17 12:30] LABS: ALBUMIN 4.4 g/dL (3.2-5.5); ALBUMIN/GLOBULIN RATIO 1.2 (1.0-2.2); ALKALINE PHOSPHATASE 64 IU/L (42-121); ALT ALANINE AMINOTRANSFERASE 36 IU/L (10-60); AST ASPARTATE AMINOTRANSFERASE 44 IU/L (10-42); BILIRUBIN,TOTAL 0.8 mg/dL (0.2-1.0); BUN - BLOOD UREA NITROGEN 13 mg/dL (6-20); CALCIUM 9.7 mg/dL (8.5-10.3); CARBON DIOXIDE - CO2 29 mmol/L (21-32); CHLORIDE 102 mmol/L (101-111); CHOL/HDL RATIO 4.4 (<4.4); CHOLESTEROL 218 mg/dL; CREATININE 0.8 mg/dL (0.4-1.0); GLUCOSE 93 mg/dL (70-100); HDL CHOLESTEROL 49 mg/dL; LDL CHOLESTEROL,CALCULATED 137 mg/dL; LDL/HDL RATIO 2.8 (<4.4); SODIUM 140 mmol/L (135-145); TOTAL PROTEIN 8.1 g/dL (6.7-8.2); VLDL CHOLESTEROL 32 mg/dL
[2019-11-17 12:45] LABS: HEMOGLOBIN A1c% 5.4 % (4.27-6.07)
== END 2019-11-17 23:59 | disposition home or self-care (01) ==
LOC: LAB.WCP 09:27
PROVIDERS: ATTEND Family Medicine
DX: E87.6 Hypokalemia (principal); E66.9 Obesity, unspecified; Z79.899 Other long term (current) drug therapy
CPT/HCPCS: 36415; 80053; 80061; 83036; 83721; 85025

== ENCOUNTER 2020-05-19 09:11 | Outpatient (CLI) | payer OTHER ==
--- NOTE | 2020-05-20 07:47 | Mammography Report ---
BILATERAL DIGITAL SCREENING MAMMOGRAM 3D/2D: 05/19/2020 CLINICAL: Routine screening. Comparison is made to exams dated: 12/23/2018 mammogram, 08/27/2015 mammogram, 09/04/2013 mammogram, 11/2013 mammogram, and 12/02/2010 mammogram - [facility]. The tissue of both breast s is heterogeneously dense. This may lower the sensitivity of mammography. No significant masses, calcifications, or other findings are seen in either breast. There has been no significant interval change. IMPRESSION: NEGATIVE There is no mammographic evidence of malignancy. A 1 year screening mammogram is recommended. This exam was interpreted at Station ID: [id number]. NOTE: For mammograms, a report in lay terms will be sent to the patient. Approximately 15% of breast malignancies will not be visualized mammographically. In the management of a palpable breast mass, a negative mammogram must not discourage biopsy of a clinically suspicious lesion. Electronically Signed By: Roge Andrade M.D. [email or web address]:05/19/2020 10:00:01 ACR BI-RADS Category 1: Negative 3341F PARENCHYMAL PATTERN: (D) - The breast(s) demonstrate(s) heterogeneously dense fibroglandular parcarlitos person. BI-RADS CATEGORY: (1) - 1 RECOMMENDATION: (ANNUAL) - Recommend routine annual screening mammography. [id number] 1 year screening LATERALITY: (B)
== END 2020-05-19 09:12 | disposition home or self-care (01) ==
LOC: DI.N 09:11
DX: Z12.31 Encounter for screening mammogram for malignant neoplasm of breast (principal)

== ENCOUNTER 2020-07-22 09:36 | Outpatient (CLI) | payer OTHER ==
[2020-07-22 12:26] LABS: BASOPHILS # (AUTO) 0.1 10^3/uL (0.0-0.1); BASOPHILS % (AUTO) 0.9 %; EOSINOPHILS # (AUTO) 0.1 10^3/uL (0.0-0.7); EOSINOPHILS % (AUTO) 2.1 %; HCT - HEMATOCRIT 45.6 % (37.0-47.0); HGB - HEMOGLOBIN 15.1 g/dL (12.0-16.0); LYMPHOCYTES % (AUTO) 35.9 %; MEAN CORPUSCULAR HEMOGLOBIN 28.8 pg (27.0-31.0); MEAN CORPUSCULAR HGB CONC 33.1 g/dL (32.0-36.0); MEAN CORPUSCULAR VOLUME 86.9 fL (81.0-99.0); MEAN PLATELET VOLUME 11.2 fL (7.9-10.8); MONOCYTES # (AUTO) 0.5 10^3/uL (0.0-1.0); MONOCYTES % (AUTO) 9.6 %; NEUTROPHILS # (AUTO) 2.9 10^3/uL (1.5-6.6); NEUTROPHILS % (AUTO) 51.1 %; PLT - PLATELET COUNT 313 10^3/uL (130-450); RED BLOOD COUNT 5.25 10^6/uL (4.20-5.40); RED CELL DISTRIBUTION WIDTH 12.7 % (12.0-15.0); WHITE BLOOD COUNT 5.7 x10^3/uL (4.8-10.8)
[2020-07-22 12:40] LABS: THYROID STIMULATING HORMONE 2.32 uIU/mL (0.34-5.60)
[2020-07-22 12:50] LABS: ALBUMIN 4.5 g/dL (3.2-5.5); ALBUMIN/GLOBULIN RATIO 1.2 (1.0-2.2); ALKALINE PHOSPHATASE 62 IU/L (42-121); ALT ALANINE AMINOTRANSFERASE 30 IU/L (10-60); AST ASPARTATE AMINOTRANSFERASE 37 IU/L (10-42); BILIRUBIN,TOTAL 0.9 mg/dL (0.2-1.0); BUN - BLOOD UREA NITROGEN 17 mg/dL (6-20); CARBON DIOXIDE - CO2 29 mmol/L (21-32); CHLORIDE 101 mmol/L (101-111); CHOL/HDL RATIO 4.6 (<4.4); CHOLESTEROL 227 mg/dL; CREATININE 0.7 mg/dL (0.4-1.0); GFR - MDRD 87 (>89); GLUCOSE 90 mg/dL (70-100); HDL CHOLESTEROL 49 mg/dL; LDL CHOLESTEROL,CALCULATED 149 mg/dL; POTASSIUM 3.8 mmol/L (3.5-5.0); SODIUM 139 mmol/L (135-145); TOTAL PROTEIN 8.4 g/dL (6.7-8.2); TRIGLYCERIDES 144 mg/dL; VLDL CHOLESTEROL 29 mg/dL
== END 2020-07-22 23:59 | disposition home or self-care (01) ==
LOC: LAB.WCP 09:36
PROVIDERS: ATTEND Family Medicine
DX: Z00.00 Encounter for general adult medical examination without abnormal findings (principal); I10 Essential (primary) hypertension
CPT/HCPCS: 36415; 80053; 80061; 83721; 84443; 85025

== ENCOUNTER 2021-01-27 16:44 | Outpatient (CLI) | payer OTHER ==
--- NOTE | 2021-01-28 10:49 | XRAY Report ---
PROCEDURE: Cervical Spine 2 View INDICATIONS: ACUTE NECK PX TECHNIQUE: 3 view(s) of the cervical spine were acquired. COMPARISON: None. FINDINGS: Straightening of the normal lordotic curvature. Scattered multilevel endplate spurring and diffuse facet arthropathy. No definite disc space narrowing. Mild levocurvature. Negative fracture. Soft tissues: No prevertebral soft tissue swelling. IMPRESSION: Straightening of the normal lordotic curvature. Levocurvature. No acute fracture. If the patient's pain or other symptoms persist, consider further evaluation with MRI. Reviewed by: Anup Drake MD on 01/28/2021 10:48 AM [facility] Approved by: Anup Drake MD on 01/28/2021 10:48 AM [facility] Station ID: [id number]
== END 2021-01-27 16:45 | disposition home or self-care (01) ==
LOC: DI.N 16:44
PROVIDERS: ATTEND Family Medicine
DX: M54.2 Cervicalgia (principal)

== ENCOUNTER 2021-03-30 08:41 | Outpatient (CLI) | payer OTHER ==
[2021-03-30 12:13] LABS: BASOPHILS % (AUTO) 0.7 %; EOSINOPHILS # (AUTO) 0.2 10^3/uL (0.0-0.7); EOSINOPHILS % (AUTO) 2.5 %; HCT - HEMATOCRIT 43.8 % (37.0-47.0); HGB - HEMOGLOBIN 14.5 g/dL (12.0-16.0); LYMPHOCYTES # (AUTO) 2.2 10^3/uL (1.5-3.5); LYMPHOCYTES % (AUTO) 37.4 %; MEAN CORPUSCULAR HGB CONC 33.1 g/dL (32.0-36.0); MEAN CORPUSCULAR VOLUME 87.6 fL (81.0-99.0); MONOCYTES # (AUTO) 0.5 10^3/uL (0.0-1.0); MONOCYTES % (AUTO) 8.2 %; PLT - PLATELET COUNT 294 10^3/uL (130-450); RED CELL DISTRIBUTION WIDTH 12.5 % (12.0-15.0); WHITE BLOOD COUNT 5.9 x10^3/uL (4.8-10.8)
[2021-03-30 12:47] LABS: ALBUMIN 4.3 g/dL (3.2-5.5); ALBUMIN/GLOBULIN RATIO 1.2 (1.0-2.2); ALKALINE PHOSPHATASE 55 IU/L (42-121); ALT ALANINE AMINOTRANSFERASE 15 IU/L (10-60); AST ASPARTATE AMINOTRANSFERASE 20 IU/L (10-42); BILIRUBIN,TOTAL 0.8 mg/dL (0.2-1.0); BUN - BLOOD UREA NITROGEN 15 mg/dL (6-20); CALCIUM 9.5 mg/dL (8.5-10.3); CARBON DIOXIDE - CO2 28 mmol/L (21-32); CHLORIDE 99 mmol/L (101-111); CHOL/HDL RATIO 3.6 (<4.4); CHOLESTEROL 216 mg/dL; CREATININE 0.8 mg/dL (0.4-1.0); GFR - MDRD 74 (>89); GLUCOSE 92 mg/dL (70-100); HDL CHOLESTEROL 60 mg/dL; LDL CHOLESTEROL,CALCULATED 137 mg/dL; LDL/HDL RATIO 2.3 (<4.4); POTASSIUM 3.8 mmol/L (3.5-5.0); SODIUM 138 mmol/L (135-145); TOTAL PROTEIN 7.8 g/dL (6.7-8.2); TRIGLYCERIDES 97 mg/dL; VLDL CHOLESTEROL 19 mg/dL
== END 2021-03-30 08:42 | disposition home or self-care (01) ==
LOC: LAB.N 08:41
PROVIDERS: ATTEND Family Medicine
DX: Z00.00 Encounter for general adult medical examination without abnormal findings (principal); I10 Essential (primary) hypertension; E78.5 Hyperlipidemia, unspecified
CPT/HCPCS: 36415; 80053; 80061; 83721; 85025

== ENCOUNTER 2022-07-01 10:27 | Outpatient (CLI) | payer OTHER ==
[2022-07-01 20:04] LABS: BASOPHILS % (AUTO) 0.8 %; EOSINOPHILS # (AUTO) 0.1 10^3/uL (0.0-0.7); EOSINOPHILS % (AUTO) 2.5 %; HCT - HEMATOCRIT 44.4 % (37.0-47.0); HGB - HEMOGLOBIN 14.1 g/dL (12.0-16.0); LYMPHOCYTES % (AUTO) 37.9 %; MEAN CORPUSCULAR HEMOGLOBIN 28.2 pg (27.0-31.0); MEAN CORPUSCULAR HGB CONC 31.8 g/dL (32.0-36.0); MEAN CORPUSCULAR VOLUME 88.8 fL (81.0-99.0); MONOCYTES # (AUTO) 0.5 10^3/uL (0.0-1.0); MONOCYTES % (AUTO) 9.1 %; NEUTROPHILS # (AUTO) 2.6 10^3/uL (1.5-6.6); NEUTROPHILS % (AUTO) 49.5 %; PLT - PLATELET COUNT 294 10^3/uL (130-450); RED CELL DISTRIBUTION WIDTH 12.7 % (12.0-15.0); WHITE BLOOD COUNT 5.2 x10^3/uL (4.8-10.8)
[2022-07-01 20:36] LABS: ALBUMIN 4.2 g/dL (3.2-5.5); ALBUMIN/GLOBULIN RATIO 1.1 (1.0-2.2); ALKALINE PHOSPHATASE 55 IU/L (42-121); ALT ALANINE AMINOTRANSFERASE 17 IU/L (10-60); AST ASPARTATE AMINOTRANSFERASE 22 IU/L (10-42); BILIRUBIN,TOTAL 0.6 mg/dL (0.2-1.0); BUN - BLOOD UREA NITROGEN 17 mg/dL (6-20); CALCIUM 9.4 mg/dL (8.5-10.3); CARBON DIOXIDE - CO2 27 mmol/L (21-32); CHLORIDE 107 mmol/L (101-111); CHOL/HDL RATIO 3.9 (<4.4); CHOLESTEROL 221 mg/dL; CREATININE 0.8 mg/dL (0.4-1.0); GFR - MDRD 74 (>89); GLUCOSE 97 mg/dL (70-100); HDL CHOLESTEROL 56 mg/dL; LDL CHOLESTEROL,CALCULATED 131 mg/dL; LDL/HDL RATIO 2.3 (<4.4); POTASSIUM 3.8 mmol/L (3.5-5.0); SODIUM 140 mmol/L (135-145); TOTAL PROTEIN 7.9 g/dL (6.7-8.2); TRIGLYCERIDES 168 mg/dL; VLDL CHOLESTEROL 34 mg/dL
[2022-07-01 20:39] LABS: THYROID STIMULATING HORMONE 2.8 uIU/mL (0.34-5.60)
== END 2022-07-01 10:28 | disposition home or self-care (01) ==
LOC: LAB.N 10:27
PROVIDERS: ATTEND Physician Assistant
DX: I10 Essential (primary) hypertension (principal); E78.5 Hyperlipidemia, unspecified
CPT/HCPCS: 36415; 80053; 80061; 83721; 84443; 85025

== ENCOUNTER 2023-04-11 17:22 | Outpatient (CLI) | payer OTHER ==
--- NOTE | 2023-04-12 17:22 | Ultrasound Report ---
PROCEDURE: Extremity Soft Tissue Limited INDICATIONS: PAIN IN LEFT FOOT TECHNIQUE: Real-time scanning was performed of the left foot, with image documentation. COMPARISON: None. FINDINGS: No visible mass along the dorsum of the foot. There is an incidental curvilinear fluid col lection at the great toe. IMPRESSION: No visible mass. Myers's neuroma not excluded. MR imaging of the forefoot with contrast is recommended for this patho logy. Nonspecific fluid collection at the great toe. Its relationship to the joint space could also be furt her evaluated by MRI. Reviewed by: Teri Bonilla MD on 04/12/2023 5:20 PM PST Approved by: Teri Bonilla MD on 04/12/2023 5:20 PM PST Station ID: [id number]
== END 2023-04-11 17:23 | disposition home or self-care (01) ==
LOC: DI 17:22
PROVIDERS: ATTEND Family Medicine
DX: M79.672 Pain in left foot (principal)